=== PATIENT | female | born 1975 | race American Indian/Alaskan Native ===

== ENCOUNTER 2019-02-16 08:14 | Emergency (ER) | payer MEDICARE ==
[2019-02-16] MEDS ORDERED: XYLOCAINE 1% 20 mL INFILTRATI ONE (10:20)
[2019-02-16] MEDS ORDERED: NACL 0.9% IR ONE (10:20)
[2019-02-16] MEDS ORDERED: BOOSTRIX IM ONE (10:20)
--- NOTE | 2019-02-16 10:21 | Emergency Department Report ---
ED General Adult HPI - General Chief complaint: Altered Mental Status Stated complaint: FALL/PT FROM NH Time Seen by Provider: 02/16/19 10:10 Source: family, EMS (ems notes not available at time of chart dictation), RN notes reviewed, old records reviewed Mode of arrival: Stretcher Limitations: Altered Mental Status, Physical Limitation - History of Present Illness Initial comments: This is a 43-year-old female. The patient has a history of debility, multiple sclerosis, is basically nonverbal, and history is obtained from the patient's . The patient is currently in a intermediate. The patient's is brought to the hospital by emergency medical services for fall out of stretcher/bed. Unknown if the fall was witnessed or not. He since h usband does not think the patient had any preceding symptoms. The patient was recently at [facility] (formerly [facility]), for hypotension, fall, and systemic inflammatory response syndrome. She had a right forehead laceration repaired. In the emergency room, the patient will groan, and will move 4 extremities. She is not able to describe what happened, and she is not able to describe qual itative nature of symptoms, exacerbating or relieving factors. The patient's does not have additional information. The patient is not able to offer additional information. -: This morning Location: head, mouth Severity scale (0 -10): 0 Consistency: other Improves with: other Worsens with: other Associated Symptoms: other - Related Data Previous Rx's Medication Instructions Recorded Last Taken Type Bacitracin Zinc Oint [Antibiotic 1 applicatio TP BID #1 tube 02/16/19 Unknown Rx Oint] Allergies Allergy/AdvReac Type Severity Reaction Status Date / Time Unable to Assess Allergy Unverified 02/16/19 08:29 ED Review of Systems ROS: Stated complaint: FALL/PT FROM NH Other details as noted in HPI Comment: Unobtainable due to pts medical conditions ED Past Medical Hx - Past Medical History Additional medical history: multiple sclerosis, anemia, hypotension - Social History Smoking Status: Unknown if ever smoked - Medications Home Medications: Home Medications Medication Instructions Recorded Confirmed Last Taken Type Bacitracin Zinc Oint [Antibiotic 1 applicatio TP BID #1 tube 02/16/19 Unknown Rx Oint] ED Physical Exam - General Limitations: Physical Limitation, Other (patient is nonverbal.) General appearance: anxious - Head Head exam: Present: normocephalic, other (patient has a sutured right lateral forehead laceration. Inferior to this, there is a 2 cm linear laceration) - Eye Eye exam: Present: normal appearance, PERRL - ENT ENT exam: Present: TM's normal bilaterally, normal external ear exam. Absent: normal orophraynx (there is a V-shaped laceration on the superior lateral aspect of the right leg) - Neck Neck exam: Present: normal inspection, full ROM. Absent: tenderness, meningismus - Respiratory Respiratory exam: Present: normal lung sounds bilaterally. Absent: respiratory distress, wheezes, rales, rhonchi, stridor, chest wall tenderness - Cardiovascular Cardiovascular Exam: Present: regular rate, normal rhythm, normal heart sounds. Absent: bradycardia, tachycardia, irregular rhythm - GI/Abdominal GI/Abdominal exam: Present: soft. Absent: distended, tenderness, guarding, rebound, rigid, pulsatile mass - Rectal Rectal exam: Present: normal inspection, other (chaperoned by patients ; no skin break down) - Extremities Exam Extremities exam: Present: full ROM, other (2+ pulses noted in the bilateral upper, lower extremities. Compartments soft. No long bony tenderness. The pelvis is stable.) - Back Exam Back exam: Present: normal inspection, full ROM. Absent: tenderness, CVA tenderness (R), CVA tenderness (L) - Neurological Exam Neurological exam: Present: altered (patient nonverbal. Groaning. Moving 4 extremities.) - Skin Skin exam: Present: dry ED Course Vital Signs 02/16/19 02/16/19 08:38 08:39 Temperature 98.9 F Pulse Rate 103 H Respiratory 17 18 Rate Blood Pressure 137/98 [Left] O2 Sat by Pulse 100 100 Oximetry - Reevaluation(s) Reevaluation #1: 02/16/19 11:11 Differential diagnosis, including but not limited to: Facial laceration, lip laceration, urinary tract infection, intracranial injury, cervical spine injury, facial bone injury Assessment and plan: 43-year-old female status post reported fall out of the stretcher. Tachycardia is resolved on my examination. She is moving 4 extremities. We will obtain CT scan of the brain, facial bones, cervical spine. We will repair the laceration. We will give a tetanus vaccination. Uri nalysis is pending at this time. Reevaluation #2: 02/16/19 13:21 CT scan of the brain, cervical spine, facial bones negative for acute disease. Limitations of the cervical spine CT are reviewed and appreciated, however, the patient has no midline cervical spine tenderness, and is moving around 4 extremities quite vigorously. Right supraorbital laceration repaired with 3 interrupted 50 monofilament sutures. Right lip laceration repaired with 3 interrupted absorbable sutures. Explained to patient's significant other that he may follow up with the cosmetic surgeon for revision in 6-8 months, if he so desires , for cosmetic reasons. Urinalysis not consistent with urinary tract infection - Laceration /Wound Repair Right Upper Lateral Face Wound Location: face Wound Length (cm): 2 Wound's Depth, Shape: into muscle, linear, contused tissue Wound Explored: clean Irrigated w/ Saline (ccs): 250 Anesthesia: 1% Lidocaine Volume Anesthetic (ccs): 5 Wound Debrided: minimal Suture Size/Type: 5:0 Number of Sutures: 3 Layer Closure?: No Sterile Dressing Applied?: No (bacitracin applied) Right Upper Face Wound Location: mouth Wound Length (cm): 0 (0.5 cm) Wound's Depth, Shape: into muscle, irregular, contused tissue Irrigated w/ Saline (ccs): 100 Anesthesia: 1% Lidocaine Volume Anesthetic (ccs): 2 Wound Debrided: minimal Suture Size/Type: 4:0 (3 interrupted absorbable) Layer Closure?: No Sterile Dressing Applied?: No ED Medical Decision Making - Lab Data Vital Signs 02/16/19 02/16/19 08:38 08:39 Temperature 98.9 F Pulse Rate 103 H Respiratory 17 18 Rate Blood Pressure 137/98 [Left] O2 Sat by Pulse 100 100 Oximetry Lab Results 02/16/19 Range/Units 12:34 Urine Color Yellow (Yellow) Urine Turbidity Clear (Clear) Urine pH 5.0 (5.0-7.0) Ur Specific Hope 1.017 (1.003-1.030) Urine Protein <15 mg/dl (Negative) mg/dL Urine Glucose (UA) Neg (Negative) mg/dL Urine Ketones Neg (Negative) mg/dL Urine Blood Neg (Negative) Urine Nitrite Neg (Negative) Urine Bilirubin Neg (Negative) Urine Urobilinogen < 2.0 (<2.0) mg/dL Ur Leukocyte Esterase Neg (Negative) Urine WBC (Auto) 1.0 (0.0-6.0) /HPF Urine RBC (Auto) 2.0 (0.0-6.0) /HPF U Epithel Cells (Auto) < 1.0 (0-13.0) /HPF Urine Mucus 1+ /HPF - Radiology Data Radiology results: report reviewed, image reviewed Critical care attestation.: If time is entered above; I have spent that time in minutes in the direct care of this critically ill patient, excluding procedure time. ED Disposition Clinical Impression: Forehead laceration, Laceration of lip, Fall, History of multiple sclerosis Disposition: [id number]/TX-[id number] ANOTHER TYPE HLTHCARE Is pt being admited?: No Does the pt Need Aspirin: No Condition: Stable Additional Instructions: Apply warm compresses, as often as as needed, to painful areas after fall. Forehead laceration sutures should be removed in 5 days. Initial sutures placed in the forehead should be removed within the next 2 days, or 5-7 days after initial suture placement. Patient will likely have a scar and cosmetic deformity in the right upper lip, and right forehead. The patient may follow-up with the plastic surgeon, or ENT physician within the next 6-8 months for cosmetic revision, if the family and/or patient so desired. Local ENT physicians include Dr. Jay Juarez Local plastic surgery physicians include Dr. Erin Barber Wash facial laceration with gentle soap and water at least once every 12-24 hours. Please return to the emergency room right away with new pain, worsening pain, migration of pain, projectile vomiting, change in mental status, confusion, inability to tolerate liquid feeds, new, worsening or different symptoms. Referrals: [facility] [Provider Group] - 3-5 Days FREYA BARBER MD [Staff Physician] - as needed LATRICE LIMA MD [Staff Physician] - as needed
[2019-02-16] MEDS ORDERED: ATIVAN ONE ×2 (11:00→12:51)
[2019-02-16] MEDS ORDERED: ATIVAN IM ONE ×2 (11:00→12:51)
--- NOTE | 2019-02-16 11:25 | Cat Scan Report ---
CT HEAD WITHOUT CONTRAST: HISTORY: Fall, head trauma. TECHNIQUE: Sequential 2.5mm CT images. COMPARISON: none. FINDINGS: Cerebral Parenchyma: Mild diffuse cortical atrophy is evident. The remainder of the cerebrum is within normal limits. Cerebellum: Moderate diffuse volume loss. Brainstem: Within normal limits. Ventricles: Normal. Sella: Normal. Extra-axial spaces: Normal. Basal Cisterns: Normal. Intracranial Hemorrhage: None. Midline Shift: None. Calvarium: Normal. Sinuses: Normal. Mastoid Air Cells: Normal. Visualized Orbits: Normal. IMPRESSION: No acute intracranial process is identified. Mild to moderate volume loss is evident for this person's age particularly in the cerebellum.
--- NOTE | 2019-02-16 11:26 | Cat Scan Report ---
CT SCAN OF THE CERVICAL SPINE: HISTORY: Fall, head trauma. TECHNIQUE: Contiguous 1.25 mm axial images of the cervical spine were obtained. Sagittal and coronal reformatted images. FINDINGS: This examination is moderately limited by patient motion artifact. The patient was sedated and uncooperative. There is normal alignment of the cervical spine. The body, pedicles and posterior ligaments appear intact. No evidence of fracture or subluxation is seen. The spinal canal appears normal. The prevertebral soft tissues appear normal. IMPRESSION: Limited exam by motion. No evidence for acute cervical injury.
--- NOTE | 2019-02-16 11:29 | Cat Scan Report ---
CT FACIAL BONES WITHOUT CONTRAST: HISTORY: Fall head trauma. TECHNIQUE: Helical CT images with sagittal and coronal CT reformations. FINDINGS: All paranasal sinuses are clear. No sinus wall fracture, fluid level or opacification. The orbital cavities are symmetric and intact. The mandible is intact. The skull base and upper cervical spine demonstrate no evidence for acute injury. IMPRESSION: Unremarkable CT of the facial bones.
[2019-02-16 12:57] LABS: Bilirubin,Urine NEG (Negative); Blood,Urine NEG (Negative); Color,Urine Yellow (Yellow); Mucus,Urine 1+ /HPF; Protein,Urine <15 mg/dL mg/dL (Negative); Urobilinogen,Urine < 2.0 mg/dL (<2.0)
[2019-02-16] MEDS ORDERED: ANTIBIOTIC OINT TP STA (13:21)
[2019-02-16 14:37] VITALS: BP 121/72
== END 2019-02-16 15:40 | disposition other institution (70) ==
LOC: ED 08:14
DX: S01.81XA Laceration without foreign body of other part of head, initial encounter (principal); S01.511A Laceration without foreign body of lip, initial encounter; G35 Multiple sclerosis; R51 Headache; D64.9 Anemia, unspecified; I95.9 Hypotension, unspecified; Z86.69 Personal history of other diseases of the nervous system and sense organs; W06.XXXA Fall from bed, initial encounter; Y93.89 Activity, other specified; Y92.89 Other specified places as the place of occurrence of the external cause; Y99.8 Other external cause status
CPT/HCPCS: 12011; 70450; 70486; 72125; 81001; 87086; 90471; 90715; 96372; 99284; J2060